=== PATIENT | female | born 1990 | race Caucasian/White ===

== ENCOUNTER → 2022-03-12 | Outpatient (CLI) | payer OTHER, SELFPAY ==
[2022-03-12 17:44] LABS: Estradiol 84.8 pg/mL; Follicle Stimulating Hormone 2.9 mIU/mL; Luteinizing Hormone 7.8 mIU/mL; Prolactin 14.7 ng/mL
[2022-03-16 11:10] LABS: Testosterone Free 2.3 pg/mL (0.0-4.2)
[2022-03-19 14:23] LABS: HPV APTIMA, High Risk Negative (Negative)
== END | disposition home or self-care (01) ==
LOC: WOBLAB 15:41
PROVIDERS: Visit Provider Student in an Organized Health Care Education/Training Program
DX: N93.9 Abnormal uterine and vaginal bleeding, unspecified (principal); Z12.4 Encounter for screening for malignant neoplasm of cervix
CPT/HCPCS: 36415; 82627; 82670; 83001; 83002; 84146; 84402; 87624; 88175; 82626; G0145

== ENCOUNTER → 2022-03-26 | Outpatient (CLI) | payer OTHER, SELFPAY ==
--- NOTE | 2022-03-25 | EMB_PTH ---
PATIENT: PATRICIA ARGUETA LOC: [facility] U#:[id number] AGE/SX: 31/F ROOM: RE03/26/[address]: Dr. Jennifer Herman, : 1990 BED: DIS: 03/26/2022 SPEC #: [id number] RECD: 03/26/22 13:05 STATUS: ANNA ARIANNA #: [id number] ALYSSA: 03/25/22 00:[address]: Jennifer Herman DEPT: SURGICAL PATHOLOGY RECD BY: Bryant Guillory ENTERED: 03/26/22 13:05 SP TYPE: ENDOM BX/C SAE DR: Out of [facility] Doctor Tissues: Endometrium, NOS Procedures: Surgery Specimen Level IV HEADER OPERATION: Endometrial biopsy PRE-OP DIAGNOSIS: Abnormal uterine bleeding TISSUE SUBMITTED: Endometrial biopsy MICROSCOPIC DIAGNOSIS Endometrial biopsy: Proliferative endometrium. SUGAR:re 03/27/2022 MICROSCOPIC DESCRIPTION Slides are reviewed. GROSS DESCRIPTION Received in fixative is one container labeled with the patient's name and designated endometrial biopsy. The specimen consists of multiple irregular fragments of pink-red soft tissue that in aggregate measure 2.5 x 2 x 0.2 cm. The specimen is totally submitted in one cassette. / SJ:re 03/26/2022 TC:4 CPT: 60280
== END | disposition home or self-care (01) ==
LOC: LABSPEC 12:09
PROVIDERS: Visit Provider Student in an Organized Health Care Education/Training Program
DX: N93.9 Abnormal uterine and vaginal bleeding, unspecified (principal)
CPT/HCPCS: 88305